=== PATIENT | female | born 1945 | race Caucasian/White ===

== ENCOUNTER 2023-01-15 11:49 | Emergency (ER) | payer MEDICARE, MEDICAID, SELFPAY ==
[2023-01-15 11:59] VITALS: BP 142/89; PULSE 82; TEMP 36.6; O2SAT 93; BMI 27.3
--- NOTE | 2023-01-15 12:17 | ED_ITS ---
HPI - Extremity Injury (Lower) General: Chief Complaint: Extremity Injury, Lower Stated Complaint: Left leg injury Time Seen by Provider: 01/15/23 12:05 Source: patient Mode of arrival: wheelchair Limitations: no limitations History of Present Illness: Patient is a 77-year-old female who presents to ED today for evaluation of a left knee injury that she sustained 2 days ago after tripping down a flight of stairs and landing directly onto the knee. Patient states she has not been able to bear weight on the joint since the fall secondary to pain. She denies any other injuries or sustained during her fall. complaint: knee injury Onset (ago): day(s) Injury: Left: knee Type of Injury: blunt Place: home Severity: moderate Relieving factors: immobilization Exacerbating factors: weight bearing, movement and palpation Context: fall and direct blow Associated symptoms: Reports inability to bear weight Other symptoms: none Review of Systems Musc: Reports: joint pain (L knee); Denies: neck pain, back pain, extremity swelling or joint swelling Neuro: Denies: headache(s), numbness in extremities, weakness in extremities or sensory changes Physical Exam Const: COMMON NORMALS: no acute distress, patient oriented x3, no limitations and alert ORIENTATION/CONSCIOUSNESS: Yes awake, Yes oriented to person, Yes oriented to place and Yes oriented to time HENMT: COMMON NORMALS: normocephalic and atraumatic HEAD & SCALP: normal to inspection, normocephalic and atraumatic Neck/C-Spine: CERVICAL SPINE: No pain with cervical ROM and No Cervical spine tenderness Resp: COMMON NORMALS: normal respiratory effort Back/Pelvis: COMMON NORMALS: thoracic and lumbar spine normal to inspection and no thoracic nor lumbar tenderness Extremity: COMMON NORMALS: normal to inspection, capillary refill normal, no joint enlargement, no clubbing, cyanosis or edema, no calf tenderness and no pedal edema GENERAL: Yes normal exam except as noted LEFT LOWER EXTREMITY: Yes knee joint and Yes lower leg OTHER: TTP anterioloateral L knee without bony deformity or swelling noted; slightly te nder to lateral L LE; distal pulses/cap refill/sensation all normal Neuro: COMMON NORMALS: patient oriented x3, moves all extremities, no focal motor deficits and no sensory deficits noted SENSORIUM/ORIENTATION: Yes alert, Yes oriented to person, Yes oriented to place and Yes oriented to time Skin: NARRATIVE SKIN EXAM: few very minimal abrasions to L anterior knee Course Vital Signs: Vital signs: Vital Signs Temperature 98 F 01/15/23 11:59 Pulse Rate 82 01/15/23 11:59 Blood Pressure 142/89 01/15/23 11:59 Pulse Oximetry 93 01/15/23 11:59 Oxygen Delivery Me thod 01/15/23 11:59 MDM - Extremity Injury (Lower) Medical Decision Making Preliminary read of patient's XRs are normal. Recommend conservative therapies at home. She does have a walker that she can use for ambulation assistance. Family states they are also willing to help as needed. Recommend follow-up with primary care in 1 to 2 weeks for continued pain. Discharge Plan Discharge Patient Disposition: Home Clinical Impression: Injury of left knee Qualifiers: Encounter type: initial encounter Qualified Code(s): S89.92XA - Unspecified injury of left lower leg, initial encounter Condition: Stable Discharge Orders: Discharge ED (Routine); Ordered 01/15/23 Ordered By: Naila Mccoy Coding Level of Care Code ED Wing Coverer for Osorio Philippe
--- NOTE | 2023-01-15 12:17 | XRR_ITS ---
PROCEDURE INFORMATION: Exam: XR Left Knee Exam date and time: 01/15/2023 12:42 PM Age: 77 years old Clinical indication: Pain and injury or trauma; Fall; Blunt trauma; Knee; Left; Additional info: Fall, injury TECHNIQUE: Imaging protocol: Radiologic exam of the Left knee. Views: 3 views. COMPARISON: No relevant prior studies available. FINDINGS: Bones/joints: Negative for acute bony abnormality. There is a circumscribed sclerotic density in the proximal lateral shaft of the tibia. This appears to be chronic. Soft tissues: Unremarkable XR/XR knee LT 3V* [id number] IMPRESSION: No acute findings. Chronic sclerotic density proximal lateral shaft of the tibia
--- NOTE | 2023-01-15 12:17 | XRR_ITS ---
PROCEDURE INFORMATION: Exam: XR Left Tibia and Fibula Exam date and time: 01/15/2023 12:42 PM Age: 77 years old Clinical indication: Pain and injury or trauma; Fall; Blunt trauma; Lower leg; Left; Additional info: Fall, injury TECHNIQUE: Imaging protocol: Radiologic exam of the Left tibia and fibula. Views: 2 views. COMPARISON: No relevant prior studies available. FINDINGS: Bones/joints: Chronic sclerotic density proximal shaft of the tibia. Otherwise negative for acute bony abnormality. Soft tissues: Normal. XR/XR tibia fibula LT 2V [id number] IMPRESSION: No acute bone abnormality
== END 2023-01-15 13:24 | disposition home or self-care (01) ==
PROVIDERS: Emergency Provider Physician Assistant
DX: S89.92XA Unspecified injury of left lower leg, initial encounter (principal); W10.9XXA Fall (on) (from) unspecified stairs and steps, initial encounter; Y93.01 Activity, walking, marching and hiking
CPT/HCPCS: 73562; 73590; 99283